=== PATIENT | male | born 1990 | race Caucasian/White ===

== ENCOUNTER 2018-11-10 14:55 | Emergency (ER) | payer MEDICARE, OTHER ==
[~2018-11-10] VITALS: Ht 175.3 cm; Wt 90.7 kg
[2018-11-11] MEDS ORDERED: AMANTADINE100 MG PO (14:26)
[2018-11-11] MEDS ORDERED: ZIPRASIDONE HCL80 MG PO (14:27)
[2018-11-11] MEDS ORDERED: BUPROPION XL300 MG PO (14:27)
[2018-11-11] MEDS ORDERED: OXCARBAZEPINE300 MG PO (14:27)
[2018-11-11] MEDS ORDERED: LOPERAMIDE2 MG PO (14:28)
[2018-11-11] MEDS ORDERED: MAPAP325 MG PO (14:29)
== END 2018-11-10 16:44 | disposition home or self-care (01) ==
LOC: ED 14:55
DX: R56.9 Unspecified convulsions (principal); F41.9 Anxiety disorder, unspecified; F84.0 Autistic disorder; Z88.8 Allergy status to other drugs, medicaments and biological substances; S00.532A Contusion of oral cavity, initial encounter; X58.XXXA Exposure to other specified factors, initial encounter
CPT/HCPCS: 70450; 80053; 85025; 96374; 99284-25; J1200

== ENCOUNTER 2018-11-11 11:25 | Emergency (ER) | payer MEDICARE, OTHER ==
[~2018-11-11] VITALS: Ht 175.3 cm; Wt 90.7 kg
--- OUTSIDE RECORDS SUMMARY | 2018-11-11 11:28 | XMS ---
PreManage Notification: VISHAL MARTINEZ Security Community Specialist Events No recent Security Events currently on file CRITERIA MET - [facility] - 2 Visits in 30 Days CARE PROVIDERS CAITLIN OBRIEN Family Medicine [facility] SHANNON PHONE: Unknown PCP_Unattributed Family Medicine Current PHONE: Unknown JAYNE GABRIEL Primary Care Current PHONE: Unknown CAITLIN ORTEGA Primary Care Thelma OBRIEN PHONE: [phone] THOMAS CAMPA Primary Care Current PHONE: [phone] Melinda Mathews Mental Health Provider 11/16/2016-Current PHONE: Unknown Cathi has no Care Guidelines for this patient. Angela VISIT COUNT (12 MO.) 2 LINDY Granda TOTAL 2 NOTE: Visits indicate total known visits. ED/UCC VISIT TRACKING (12 MO.) 11/11/2018 11:25 [facility] [place] TYPE: Emergency COMPLAINT: - FOLLOW UP 11/10/2018 14:56 [facility] [place] TYPE: Emergency COMPLAINT: - SEIZURE INPATIENT VISIT TRACKING (12 MO.) No inpatient visits to display in this time frame [id number]
[2018-11-11] MEDS ORDERED: AMANTADINE100 MG PO (14:26)
[2018-11-11] MEDS ORDERED: ZIPRASIDONE HCL80 MG PO (14:27)
[2018-11-11] MEDS ORDERED: OXCARBAZEPINE300 MG PO (14:27)
[2018-11-11] MEDS ORDERED: BUPROPION XL300 MG PO (14:27)
[2018-11-11] MEDS ORDERED: LOPERAMIDE2 MG PO (14:28)
[2018-11-11] MEDS ORDERED: MAPAP325 MG PO (14:29)
== END 2018-11-11 14:23 | disposition home or self-care (01) ==
LOC: ED 11:25
DX: R51 Headache (principal); F41.9 Anxiety disorder, unspecified; F84.0 Autistic disorder; Z88.8 Allergy status to other drugs, medicaments and biological substances
CPT/HCPCS: 70450; 99284-25

== ENCOUNTER 2019-06-01 15:09 | Emergency (ER) | payer MEDICARE, OTHER ==
[~2019-06-01] VITALS: Ht 175.3 cm; Wt 90.7 kg
--- OUTSIDE RECORDS SUMMARY | ~2019-06-01 | XMS | Encounter Summary ---
Demographics + + + | Address | [address] | | | [place] [address] | + + + | Home Phone | | + + + | Preferred Language | Unknown | + + + | Marital Status | Single | + + + | Druze Affiliation | Unknown | + + + | Race | Unknown | + + + | Ethnic Group | Unknown | + + + Author + + + | Author | [facility] | | | and [place] | + + + | Organization | [facility] | | | and [place] | + + + | Address | Unknown | + + + | Phone | Unavailable | + + + Support + + +---------+ + | Name | Relationship | Address | Phone | + + +---------+ + | ALEJANDRA MARTINEZ | ECON | Unknown | | + + +---------+ + Care Team Providers + +------+ + | Care Irrigator Head Name | Role | Phone | + +------+ + | Norris Boone NP | PCP | | + +------+ + Reason for Visit +--------+ + | Reason | Comments | +--------+ + | Other | Needs to speak w/ Supervisor [facility] Animal Facility | +--------+ + Encounter Details +--------+ + + + + | Date | Type | Department | Care Team | Description | +--------+ + + + + | 04/20/ | Telephone | [facility] | Dedrick Kelsey, | Other (Needs to | | 2019 | | NEUROLOGY [address] | [address] | speak w/ Referral | | | | [address] | [address] | Coordinator) | | | | [place], [place] | [place] [address] | | | | | [address] | [phone] | | | | | [phone] | | | +--------+ + + + + Social History + +-------+ +--------+------+ | Tobacco Use | Types | Packs/Day | Years | Date | | | | | Used | | + +-------+ +--------+------+ | Never Assessed | | | | | + +-------+ +--------+------+ + + + | Sex Assigned at | Date Recorded | | | | + + + | Not on file | | + + + + + + + | Job Start Date | Occupation | Industry | + + + + | Not on file | Not on file | Not on file | + + + + + + + + | Travel History | Travel Start | Travel End | + + + + + + | No recent travel history available. | + + documented as of this encounter Plan of Treatment +--------+---------+ + + + | Date | Type | Specialty | Care Team | Description | +--------+---------+ + + + | 09/21/ | Office | Neurology | Dedrick Kelsey, | | | 2019 | Visit | | MD Lucas [address] | | | | | | [address] | | | | | | [place] [address] | | | | | | [phone] | | | | | | | | +--------+---------+ + + + documented as of this encounter Visit Diagnoses Not on filedocumented in this encounter"
--- OUTSIDE RECORDS SUMMARY | ~2019-06-01 | XMS | Encounter Summary ---
Demographics + + + | Address | [address] | | | [place] [address] | + + + | Home Phone | | + + + | Preferred Language | Unknown | + + + | Marital Status | Single | + + + | Hindu Affiliation | Unknown | + + + | Race | Unknown | + + + | Ethnic Group | Unknown | + + + Author + + + | Author | [facility] | | | and [place] | + + + | Organization | [facility] | | | and [place] [...] Team Providers + +------+ + | Care Certified Rehabilitation Counselor Name | Role | Phone | + +------+ + | Norris Boone NP | PCP | | + +------+ + Reason for Visit +--------+ + | Reason | Comments | +--------+ + | Other | Needs to speak w/ Rail Setter | +--------+ + Encounter Details +--------+ + + + + | Date | Type | Department | Care Team | Description | +--------+ + + + + | 04/20/ | Telephone | [facility] | Dedrick Kelsey, | Other (Needs to | | 2019 | | NEUROLOGY [address] | [address] | speak w/ Referral | | | | [address] | [address] | Coordinator) | | | | [place], [place] | [place] [address] | | | | | [address] | [phone] | | | | | [phone] | | | +--------+ + + + [...] [address] | | | | | | [address] | | | | | | [place] [address] | | | | | | [phone] | | | | | | | | +--------+---------+ + + + documented as of this encounter Visit Diagnoses Not on filedocumented in this encounter"
--- OUTSIDE RECORDS SUMMARY | ~2019-06-01 | XMS | Clinical Summary ---
Demographics + + + | Address | [address] | | | [place] [address] | + + + | Home Phone | | + + + | Preferred Language | Unknown | + + + | Marital Status | Single | + + + | Yarsani Affiliation | Unknown | + + + | Race | Unknown | + + + | Ethnic Group | Unknown | + + + Author + + + | Author | [facility] | | | and [place] | + + + | Organization | [facility] | | | and [place] [...] Team Providers + +------+ + | Care Bread Stacker Name | Role | Phone | + +------+ + | Norris Boone NP | PCP | | + +------+ + Allergies + + + + + + | Active Allergy | Reactions | Severity | Noted | Comments | | | | | Date | | + + + + + + | Benzodiazepines | Other (See Comments) | | 05/05/20 | Mental | | | | | 19 | | + + + + + + Medications + + + +---------+------+------+-------+ | Medication | Sig | Dispensed | Refills | Star | End | Statu | | | | | | t | Date | s | | | | | | Date | | | + + + +---------+------+------+-------+ | MAPAP 325 MG | | | 5 | 11/1 | | Activ | | tablet | | | | 5/20 | | e | | | | | | 18 | | | + + + +---------+------+------+-------+ | amantadine | | | 6 | 08/2 | | Activ | | (SYMMETREL) 100 mg | | | | 1/20 | | e | | capsule | | | | 19 | | | + + + +---------+------+------+-------+ | buPROPion | | | 6 | 08/2 | | Activ | | (WELLBUTRIN XL) 300 | | | | 1/20 | | e | | mg 24 hr tablet | | | | 19 | | | + + + +---------+------+------+-------+ | BANOPHEN 25 MG | | | 5 | 11/1 | | Activ | | capsule | | | | 5/20 | | e | | | | | | 18 | | | + + + +---------+------+------+-------+ | EUCERIN ECZEMA | | | 99 | 11/1 | | Activ | | RELIEF 1 % CREA | | | | 5/20 | | e | | | | | | 18 | | | + + + +---------+------+------+-------+ | ibuprofen (ADVIL, | | | 5 | 11/1 | | Activ | | MOTRIN) 200 mg | | | | 5/20 | | e | | tablet | | | | 18 | | | + + + +---------+------+------+-------+ | loperamide | | | 5 | 11/1 | | Activ | | (IMODIUM) 2 mg | | | | 5/20 | | e | | capsule | | | | 18 | | | + + + +---------+------+------+-------+ | OXcarbazepine | | | 6 | 08/2 | | Activ | | (TRILEPTAL) 300 mg | | | | 1/20 | | e | | tablet | | | | 19 | | | + + + +---------+------+------+-------+ | OXcarbazepine | | | 6 | 08/2 | | Activ | | (TRILEPTAL) 600 MG | | | | 1/20 | | e | | tablet | | | | 19 | | | + + + +---------+------+------+-------+ | | | | 5 | 11/1 | | Activ | | Neomycin-Bacitracin- | | | | 5/20 | | e | | Polymyxin (TRIPLE | | | | 18 | | | | ANTIBIOTIC) | | | | | | | | 3.5-400-5000 OINT | | | | | | | + + + +---------+------+------+-------+ | ziprasidone | | | 6 | 08/2 | | Activ | | (GEODON) 80 MG | | | | 1/20 | | e | | capsule | | | | 19 | | | + + + +---------+------+------+-------+ | ROBAFEN 100 MG/5ML | | | 5 | 11/1 | | Activ | | syrup | | | | 5/20 | | e | | | | | | 18 | | | + + + +---------+------+------+-------+ | MUCINEX 600 MG 12 | | | 5 | 11/1 | | Activ | | hr tablet | | | | 5/20 | | e | | | | | | 18 | | | + + + +---------+------+------+-------+ | melatonin 5 mg | Take by mouth | | 0 | | | Activ | | tablet | nightly as needed | | | | | e | | | for Insomnia. | | | | | | + + + +---------+------+------+-------+ | topiramate | Take 25 mg bid X 1 | 120 | 3 | 09/0 | | Activ | | (TOPAMAX) 50 MG | Wk then 50 mg bid X | tablet | | 3/20 | | e | | tablet | 1Wk then 75 mg bid X | | | 19 | | | | | 1Wk then 100 mg | | | | | | | | bid. | | | | | | + + + +---------+------+------+-------+ Active Problems Not on file Encounters +--------+ + + + + | Date | Type | Specialty | Care Team | Description | +--------+ + + + + | 09/18/ | Telephone | Neurology | Dedrick Kelsey, | Other (EEG Orders ) | | 2018 | | | MD | | +--------+ + + + + | 05/05/ | Office | Neurology | Dedrick Kelsey, | Seizure disorder | | 2018 | Visit | | MD | ([facility]) (Primary Dx); | | | | | | Driving safety | | | | | | issue; | | | | | | Encephalopathy; High | | | | | | risk medication use | +--------+ + + + + | 04/20/ | Telephone | Neurology | Dedrick Kelsey, | Other (Needs to | | 2018 | | | MD | speak w/ Referral | | | | | | Coordinator) | +--------+ + + + + from Last 3 Months Social History + +-------+ +--------+------+ | Tobacco Use | Types | Packs/Day | Years | Date | | | | | Used | | + +-------+ +--------+------+ | Never Smoker | | | | | + +-------+ +--------+------+ + +---+---+---+ | Smokeless Tobacco: | | | | | Never Used | | | | + +---+---+---+ + + +---------+ + | Alcohol Use | Drinks/We | oz/Week | Comments | | | ek | | | + + +---------+ + | Never | | | | + + +---------+ + + + + + | Alcohol Habits | Answer | Date Recorded | + + + + | How often do you have a drink containing | Never | 05/05/2019 | | alcohol? | | | + + + + | How many drinks containing alcohol do you | Not asked | | | have on a typical day when you are | | | | drinking? | | | + + + + | How often do you have six or more drinks on | Not asked | | | one occasion? | | | + + + + + + + | Sex Assigned at [...] recent travel history available. | + + Last Filed Vital Signs + + + + | Vital Sign | Reading | Time Taken | + + + + | Blood Pressure | 117/74 | 05/05/2019 1520 PDT | + + + + | Pulse | 90 | 05/05/20191519 PDT | + + + + | Temperature | - | - | + + + + | Respiratory Rate | - | - | + + + + | Oxygen Saturation | 99% | 05/05/20191519 PDT | + + + + | Inhaled Oxygen | - | - | | Concentration | | | + + + + | Weight | 74.4 kg (164 lb 1.6 | 05/05/20191519 PDT | | | oz) | | + + + + | Height | 175.3 cm (5' 9") | 05/05/2019 1520 PDT | + + + + | Body Mass Index | 24.23 | 05/05/2019 1520 PDT | + + + + Plan of Treatment +--------+---------+ + + + | Date | Type | Specialty | Care Team | Description | +--------+---------+ + + + | 09/21/ | Office | Neurology | Dedrick Kelsey, | | | 2019 | Visit | | MD Lucas [address]ANA | | | | | | [address] | | | | | | [place] [address] | | | | | | [phone] | | | | | | | | +--------+---------+ + + + + + + + + | Health Maintenance | Due Date | Last Done | Comments | + + + + + | Vaccine: | | 11/27/1999, 06/09/1993, | | | Dtap/Tdap/Td (6 - | 0 | 01/07/1990, Additional history | | | Tdap) | | exists | | + + + + + | Adult Annual | | | | | Wellness Visit | 9 | | | + + + + + | Vaccine: Influenza | | 07/16/2018, 2017, | | | (#1) | 9 | 06/28/2016, Additional history | | | | | exists | | + + + + + Results Not on filefrom Last 3 Months Insurance + +--------+ +--------+ +---------+--------+ | Payer | Benefi | Subscriber | Effect | Phone | Address | Type | | | t Plan | ID | hamzah | | | | | | / | | Dates | | | | | | Group | | | | | | + +--------+ +--------+ +---------+--------+ | MEDICARE | MEDICA | [id number] | 09/02/19 | [phone] | | Medica | | | RE | | 11-Pre | 5 | | re | | | PART A | | sent | | | | | | AND B | | | | | | + +--------+ +--------+ +---------+--------+ | [employer] | MODA | [id number] | 05/05/20 | [phone] | | Medica | | MEDICAID HMO | HEALTH | | 19-Pre | 1 | | id | | | MDCD | | sent | | | | | | HMO [place] | | | | | | + +--------+ +--------+ +---------+--------+ + +--------+ +--------+ + + | Guarantor Name | Accoun | Relation to | Date | Phone | Billing Address | | | t Type | Patient | of | | | | | | | | | | + +--------+ +--------+ + + | Joshua Martinez | Person | Self | [birth year] | [address] | | | al/Fam | | 1990 | [phone] | [place] [address] | | | matt | | | 4 (Home) | | + +--------+ +--------+ + + Advance Directives Patient has advance care planning documents on file. For more information, please contact:[facility] [place] [address]
--- OUTSIDE RECORDS SUMMARY | ~2019-06-01 | XMS | Encounter Summary ---
Demographics + + + | Address | [address] | | | [place] [address] | + + + | Home Phone | | + + + | Preferred Language | Unknown | + + + | Marital Status | Single | + + + | Jew Affiliation | Unknown | + + + | Race | Unknown | + + + | Ethnic Group | Unknown | + + + Author + + + | Author | [facility] | | | and [place] | + + + | Organization | [facility] | | | and [place] | [...] Team Providers + +------+ + | Care Metal Trades Instructor Name | Role | Phone | + +------+ + | Norris Boone NP | PCP | | + +------+ + Reason for Visit +--------+ + | Reason | Comments | +--------+ + | Other | EEG Orders | +--------+ + Encounter Details +--------+ + + + + | Date | Type | Department | Care Team | Description | +--------+ + + + + | 05/20/ | Telephone | [facility] | Dedrick Kelsey, | Other (EEG Orders ) | | 2019 | | NEUROLOGY [address] | MD [address] | | | | | [address] | [address] | | | | | [place], [place] | [place] [address] | | | | | [address] | [phone] | | | | | [phone] | | | +--------+ + + + [...] | | | | | | [address] | | | | | | [place] [address] | | | | | | [phone] | | | | | | | | +--------+---------+ + + + documented as of this encounter Visit Diagnoses Not on filedocumented in this encounter"
--- OUTSIDE RECORDS SUMMARY | ~2019-06-01 | XMS | Clinical Summary ---
Demographics + + + | Address | [address] | | | [place] [address] | + + + | Home Phone | | + + + | Preferred Language | Unknown | + + + | Marital Status | Unknown | + + + | Restoration Affiliation | Unknown | + + + | Race | Unknown | + + + | Ethnic Group | Unknown | + + + Author + + + | Author | [facility] (Historical as of | | | 04-18-19) | + + + | Organization | [facility] (Historical as of | | | 04-18-19) | + + + | Address | Unknown | + + + | Phone | Unavailable | + + + Care Team Providers + +------+ + | Care Train Starter Name | Role | Phone | + +------+ + PP | Unavailable | + +------+ + Allergies Not on File Current Medications Not on file Active Problems Not on file Encounters +--------+ + + + + | Date | Type | Specialty | Care Team | Description | +--------+ + + + + 03/17/ | Documentati | | Macey Pacheco, | Other ([place] | | 2018 | on Only | | [place] | [facility]) | +--------+ + + + + 03/12/ | Documentati | | See, Medical | | | 2018 | on Only | | Record | | +--------+ + + + + 03/12/ | Telephone | | Dedrick Kelsey, | Augie (Medical | | 2018 | | | MD | Records) | +--------+ + + + + 03/11/ | Telephone | | Macey Pacheco, | | | 2019 | | | [place] | | +--------+ + + + + from [...] on file | | + + + Plan of Treatment + + + + + | Health Maintenance | Due Date | Last Done | Comments | + + + + + | Vaccine: | | | | | Dtap/Tdap/Td (1 - | 7 | | | | Tdap) | | | | + + + + + | Vaccine: Influenza | | | | | (#1) | 9 | | | + + + + + Results Not on filefrom Last 3 Months Insurance + +--------+ +------+-------+ + | Payer | Benefi | Subscriber | Type | Phone | Address | | | t Plan | ID | | | | | | / | | | | | | | Group | | | | | + +--------+ +------+-------+ + | MEDICARE | MEDICA | [id number] | | | [address] | | | RE | | | | [place] [address] | | | IP-OP | | | | | + +--------+ +------+-------+ + | MEDICAID | WILLY | [id number] | | | [address] | | | [place] | | | | [place] | | | [place] | | | | [address] | | | [employer] | | | | | + +--------+ +------+-------+ + + +--------+ +--------+ + + | Guarantor Name | Accoun | Relation to | Date | Phone | Billing Address | | | t Type | Patient | of | | | | | | | | | | + +--------+ +--------+ + + | JOSHUA MARTINEZ | Person | Self | [birth year] | Home: | [address] | | | al/Fam | | 1989 | [phone] [place] [address] | | | matt | | | [phone] | | + +--------+ +--------+ + +"
--- OUTSIDE RECORDS SUMMARY | ~2019-06-01 | XMS | Encounter Summary ---
Demographics + + + | Address | [address] | | | [place] [address] | + + + | Home Phone | | + + + | Preferred Language | Unknown | + + + | Marital Status | Unknown | + + + | Buddhism Affiliation | Unknown | + + + | Race | Unknown | + + + | Ethnic Group | Unknown | + + + Author + + + | Author | [facility] (Historical as of | | | 04-18-19) | + + + | Organization | [facility] (Historical as of | | | 04-18-19) | + + + | Address | Unknown | + + + | Phone | Unavailable | + + + Care Team Providers + +------+ + | Care Jack Tamp Operator Name | Role | Phone | + +------+ + PCP | Unavailable | + +------+ + Reason for Visit +--------+ + | Reason | Comments | +--------+ + | Other | Medical Records | +--------+ + Encounter Details +--------+ + + + + | Date | Type | Department | Care Team | Description | +--------+ + + + + | 03/12/ | Telephone | [facility] | Dedrick Kelsey, | Other (Medical | | 2019 | | [facility] Center | MD [address] | Records) | | | | [address] | [place], [place] | | | | | [place], [place] | [address] | | | | | [address] | | | | | | [phone] | | | +--------+ + + + [...] on file | | + + + as of this encounter Plan of Treatment Not on fileas of this encounter Visit Diagnoses Not on filein this encounter"
--- OUTSIDE RECORDS SUMMARY | ~2019-06-01 | XMS | Encounter Summary ---
Demographics + + + | Address | [address] | | | [place] [address] | + + + | Home Phone | | + + + | Preferred Language | Unknown | + + + | Marital Status | Unknown | + + + | Denominational Affiliation | Unknown | + + + | Race | Unknown | + + + | Ethnic Group | Unknown | + + + Author + + + | Author | [facility] (Historical as of | | | 04-18-19) | + + + | Organization | [facility] (Historical as of | | | 04-18-19) | + + + | Address | Unknown | + + + | Phone | Unavailable | + + + Care Team Providers + +------+ + | Care Spinning Frame Tender Name | Role | Phone | + +------+ + PCP | Unavailable | + +------+ + Encounter Details +--------+ + + + + | Date | Type | Department | Care Team | Description | +--------+ + + + + | 03/11/ | Telephone | [facility] | Macey Pacheco, | | | 2019 | | [facility] [place] | [place] | | | | | [address] | | | | | | [place] | | | | | | [address] | | | | | [phone] | | | +--------+ + + + [...]
--- OUTSIDE RECORDS SUMMARY | ~2019-06-01 | XMS | Encounter Summary ---
Demographics + + + | Address | [address] | | | [place] [address] | + + + | Home Phone | | + + + | Preferred Language | Unknown | + + + | Marital Status | Single | + + + | Jainism Affiliation | Unknown | + + + | Race | Unknown | + + + | Ethnic Group | Unknown | + + + Author + + + | Author | [facility] | | | and [place] | + + + | Organization | [facility] | | | and [place] [...] Team Providers + +------+ + | Care Order Entry Technician Name | Role | Phone | + +------+ + | Norris Boone NP | PCP | | + +------+ + Reason for Visit + + + | Reason | Comments | + + + | Establish Care | Epilepsy | + + + Evaluate & Treat (Routine) + +--------+ + + + + | Status | Reason | Specialty | Diagnoses / | Referred By | Referred To | | | | | Procedures | Contact | Contact | + +--------+ + + + + | Authorized | | | Diagnoses | Paolo, | Tammaa, | | | | | Autistic | Norris Walker, | MD Dedrick | | | | | disorder | [employer]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 [address] | [address] | | | | | Traumatic | [address] | [address] | | | | | subarachnoid | [place]ON [place], | D | | | | | hemorrhage | [address] | [place] | | | | | without loss | [place], | [address] | | | | | of | [place] [address] | Phone: | | | | | consciousnes | Phone: | [phone] | | | | | s, | [phone] | Fax: | | | | | subsequent | Fax: | [phone] | | | | | encounter | [phone] | | | | | | Unspecified | | | | | | | intellectual | | | | | | | | | | | | | | disabilities | | | | | | | Other | | | | | | | generalized | | | | | | | epilepsy and | | | | | | | epileptic | | | | | | | syndromes, | | | | | | | not | | | | | | | intractable, | | | | | | | without | | | | | | | status | | | | | | | epilepticus | | | | | | | (HCC) | | | + +--------+ + + + + Encounter Details +--------+---------+ + + + | Date | Type | Department | Care Team | Description | +--------+---------+ + + + | 05/05/ | Office | [facility] | Dedrick Kelsey, | Seizure disorder | | 2019 | Visit | NEUROLOGY [address] | ([facility]) (Primary Dx); | | | | [address] | Driving safety | | | | [place], [place] | [place] [address] | issue; | | | | [address] | [phone] | Encephalopathy; High | | | | [phone] | | risk medication use | +--------+---------+ + + + Social History + +-------+ [...] + + documented as of this encounter Last Filed Vital Signs + + + + | Vital Sign | Reading | Time Taken | + + + + | Blood Pressure | 117/74 | 05/05/2019 1520 PDT | + + + + | Pulse | 90 | 05/05/2019 1520 PDT | + + [...] Height | 175.3 cm (5' 9") | 05/05/20191519 PDT | + + + + | Body Mass Index | 24.23 | 05/05/2019 1520 PDT | + + + + documented in this encounter Patient Instructions Patient Instructions Dedrick Kelsey MD - 05/05/2019 15:15 PDT1- Topiramate 25 mg twice da matt X 1wk then increase to 100 mg twice daily over 4 weeks. 2- Try to avoid Wellbutrin if possible. 3- Labs in 5 weeks, before am dose. 4- Return to clinic in 6 - 8 weeks. Topiramate tablets Brand Names: Topamax, Topiragen What is this medicine? TOPIRAMATE (toe PYRE a mate) is used to treat seizures in adults or children with epilepsy. It is also used for the prevention of migraine headaches. How should I use this medicine? Take this medicine by mouth with a glass of water. Follow the directions on the prescriptio n label. Do not crush or chew. You may take this medicine with meals. Take your medicine at regular intervals. Do not take it more often than directed. Talk to your reading tutor regarding the use of this medicine in children. Special care may be needed. While this drug may be prescribed for children as young as 2 years of age for alicia ected conditions, precautions do apply. What side effects may I notice from receiving this medicine? Side effects that you should report to your doctor or health property caretaker as soon as p ossible: allergic reactions like skin rash, itching or hives, swelling of the face, lips, or tong ue decreased sweating and/or rise in body temperature depression difficulty breathing, fast or irregular breathing patterns difficulty speaking difficulty walking or controlling muscle movements hearing impairment redness, blistering, peeling or loosening of the skin, including inside the mouth tingling, pain or numbness in the hands or feet unusual bleeding or bruising unusually weak or tired worsening of mood, thoughts or actions of suicide or dying Side effects that usually do not require medical attention (report to your doctor or health property caretaker if they continue or are bothersome): altered taste back pain, joint or muscle aches and pains diarrhea, or constipation headache loss of appetite nausea stomach upset, indigestion tremors What may interact with this medicine? Do not take this medicine with any of the following medications: probenecid This medicine may also interact with the following medications: acetazolamide alcohol amitriptyline aspirin and aspirin-like medicines control pills certain medicines for depression certain medicines for seizures certain medicines that treat or prevent blood clots like warfarin, enoxaparin, daltepari n, apixaban, dabigatran, and rivaroxaban digoxin hydrochlorothiazide lithium medicines for pain, sleep, or muscle relaxation metformin methazolamide NSAIDS, medicines for pain and inflammation, like ibuprofen or naproxen pioglitazone risperidone What if I miss a dose? If you miss a dose, take it as soon as you can. If your next dose is to be taken in less th an 6 hours, then do not take the missed dose. Take the next dose at your regular time. Do no t take double or extra doses. Where should I keep my medicine? Keep out of the reach of children. Store at room temperature between 15 and 30 degrees C (59 and 86 degrees F) in a tightly cl osed container. Protect from moisture. Throw away any unused medicine after the expiration d ate. What should I tell my health care provider before I take this medicine? They need to know if you have any of these conditions: bleeding disorders cirrhosis of the liver or liver disease diarrhea glaucoma kidney stones or kidney disease low blood counts, like low white cell, platelet, or red cell counts lung disease like asthma, obstructive pulmonary disease, emphysema metabolic acidosis on a ketogenic diet schedule for surgery or a procedure suicidal thoughts, plans, or attempt; a previous suicide attempt by you or a family memb er an unusual or allergic reaction to topiramate, other medicines, foods, dyes, or preserva tives or trying to get breast-feeding What should I watch for while using this medicine? Visit your doctor or health property caretaker for regular checks on your progress. Do not s top taking this medicine suddenly. This increases the risk of seizures if you are using this medicine to control epilepsy. Wear a medical identification bracelet or chain to say you zhang ve epilepsy or seizures, and carry a card that lists all your medicines. This medicine can decrease sweating and increase your body temperature. Watch for signs of sweating or fever, especially in children. Avoid extreme heat, hot baths, and sauna s. Be careful about exercising, especially in hot weather. Contact your health care provider right away if you notice a fever or decrease in sweating. You should drink plenty of fluids while taking this medicine. If you have had kidney stones in the past, this will help to reduce your chances of forming kidney stones. If you have stomach pain, with nausea or vomiting and yellowing of your eyes or skin, call your doctor immediately. You may get drowsy, dizzy, or have blurred vision. Do not drive, use machinery, or do anyth ing that needs mental alertness until you know how this medicine affects you. To reduce dizz iness, do not sit or stand up quickly, especially if you are an older patient. Alcohol can i ncrease drowsiness and dizziness. Avoid alcoholic drinks. If you notice blurred vision, eye pain, or other eye problems, seek medical attention at on for an eye exam. The use of this medicine may increase the chance of suicidal thoughts or actions. Pay speci al attention to how you are responding while on this medicine. Any worsening of mood, or tho ughts of suicide or dying should be reported to your health property caretaker right away. This medicine may increase the chance of developing metabolic acidosis. If left untreated, this can cause kidney stones, bone disease, or slowed growth in children. Symptoms include b reathing fast, fatigue, loss of appetite, irregular heartbeat, or loss of consciousness. Jonathan l your doctor immediately if you experience any of these side effects. Also, tell your docto r about any surgery you plan on having while taking this medicine since this may increase yo ur risk for metabolic acidosis. control pills may not work properly while you are taking this medicine. Talk to your doctor about using an extra method of control. Women who become while using this medicine may enroll in the [place] Ant[place]ptic Drug Registry by calling . This registry collects informatio n about the safety of antiepileptic drug use during . NOTE:This sheet is a summary. It may not cover all possible information. If you have questi ons about this medicine, talk to your doctor, pharmacist, or health care provider. Copyright 2019 Elsevier Standard EEG: *Clean, dry hair-no products *All medications as directed *Family is asked to wait in the lobby during EEG study-unless needed by nut blanker operator *Test time: roughly 45 minutes *Location: [address] [place] [address] ([place]) Phone number: or Sleep-Deprived EEG: *Example: Stay up until midnight before testing-get up at 5:00am (sleep deprivation) *No caffeine/cigarettes(stimulants) *We ask that someone else drive, as we would not recommend being sleep deprived and on the road *Clean, dry hair-no products *All medications as directed *Family is asked to wait in the lobby during EEG study-unless needed by nut blanker operator *Test time: roughly 60 minutes *Location: [address] [place] [address] ([place]) Phone number: or documented in this encounter Progress Notes Dedrick Kelsey MD - 05/05/2019 1515 PDTFormatting of this note might be different from th maurice original. Subjective: Patient ID: Joshua Martinez is a 28 y.o. male. HPI Dear Norris Boone NP. Thank you for asking us to participate in your patient's care. As you know, Joshua Martinez is a 28 y.o. right handed male who presents today for oz luation of new onset seizures disorder. New vitis. Previous neurologist: None. Events type/s: - Onset; context and course: October,; none; stable. - Ictal: Sudden fall with GTC phases without tongue biting or incontinence. - Duration: 30 - 60 seconds. - Postictal and duration: Tired for the rest of the day. - Frequency; current frequency and last spell: 11/10/18, and May 03, 2019. - Provocative factors: None. Previous record: - Etiology of epilepsy or epilepsy syndrome (including unknown and cryptogenic): Unknown. - EEG: Will check. - Brain MRI: Head CT from 11/10/18: Equivocal focus of subarachnoid hemorrhage versus motion artifact. Head CT from 11/11/18: Probable resolving minimal hemorrhage. - Previous treatment: He is on trileptal 900 mg bid. - Current treatment and side effects if any: Trileptal 900 mg bid. Risk factors for epilepsy include: No head trauma with loss of consciousness more than 30 m inutes, meningitis, encephalitis, febrile seizure, developmental delay or family history of seizure disorder. - Compliance with treatment and orders: Good. - Mood change or depression: Good. - AEDs level: Will check. - Toxicity monitoring: Will check. Lamotrigine was reported to have significant reaction in his case. No current outpatient medications on file. Past Medical History: Diagnosis Date Anxiety Autistic disorder, active Seizures (HCC) FHx: Non FHx off seizures. Social History Socioeconomic History Marital status: Single Spouse name: Not on file Number of children: Not on file Years of education: Not on file Highest education level: Not on file Social Needs Financial resource strain: Not on file Food insecurity - worry: Not on file Food insecurity - inability: Not on file Transportation needs - medical: Not on file Transportation needs - non-medical: Not on file Occupational History Not on file Tobacco Use Smoking status: Never Smoker Smokeless tobacco: Never Used Substance and Sexual Activity Alcohol use: Never Frequency: Never Drug use: Never Sexual activity: Never Other Topics Concern Not on file Social History Narrative Not on file Past medical history, family history and social history were reviewed and updated as necess martha. Review of Systems The patient reports seizures, speech difficulty, agitation, nervousness, and sleep disturba nce. All other system were reviewed and are negative. Objective: BP 117/74 | Pulse 90 | Ht 1.753 m (5' 9") | Wt 74.4 kg (164 lb 1.6 oz) | SpO2 99% | BM I 24.23 kg/m Physical Exam Vitals: Vitals: 05/05/19 1520 BP: 117/74 Pulse: 90 General: Well developed, in no acute distress Neck: Supple, unable to appreciate bruits. Heart: S1, S2, no murmur. Peripheral vascular system: Palpable pulse in upper extremities. Detailed Neurologic Exam Speech: Is fluent and spontaneous with normal naming and repetition. Cognition: The patient is oriented to person, place, and month. Cranial Nerves: At this time, the pupils are equal, round, and reactive to light. Visual fi elds are full to finger confrontation. Extraocular movements are intact. Trigeminal sensatio n is intact and the muscles of mastication are normal. The face is symmetric. Hearing is sym metric bilaterally to fingers rubbing. The palate elevates in the midline. Voice is normal. Shoulder shrug is normal. The tongue has normal motion without fasciculations. Coordination: Reasonable finger to nose. Gait: Unremarakable. Observation: No asymmetry, or involuntary movements noted. Tone: Normal muscle tone. Posture: Normal. Strength: Strength is 5/5 in the upper and lower limbs. Light Touch: Normal light touch sensation in upper and lower extremities. DTR's: Deep tendon reflexes in the upper extremities and knees are normal bilaterally. Assessment: Reason for visit: Evaluation and management of seizure disorder. With: Parents. Impression: 1- New onset seizure disorder in patient with autism while on Trileptal 900 mgbid. 2- Autism with behavioral concerns. Lamotrigine reported to have significant reaction with his genetic testings. Discussed therapeutic options (Keppra, lamotrigine and topiramate), decided to start topira mate knowing benefits and risks. Plan: 1- The differential diagnosis and the necessary work up were discussed with the patient in detail. 2- I reviewed the available medical record and summarized it in my HPI. 3- We discussed the safety issues in detail including safe environment. No falls. He adams sn ot drive. 4- For #1, topiramate 25 mg bid >> 100 mg bid over 4 weeks, check fasting labs before am do se in 5 weeks to r/o toxicity and to insure therapeutic level and good adherence. R-EEG. 5- For #2, per primary care and psychiatry. Try to avoid Wellbutrin if possible. 6- I covered with the patient's family all side effects of the regimen and the interaction with other medications (renal strokes >> reasonable hydration). Parents understand and agree to proceed with the regimen / plan. 7- Risk factors modification per PCP. The patient was instructed to follow up with PCP in r egards to the non neurological symptoms listed on the review of symptoms. 8- RTC in 6 - 8 weeks or prn. However, patient was instructed to call with any concern, if symptoms are worsening, not improving or if any side effects related to regimen. Plan: As above. documented in this encou nter Plan of Treatment +--------+---------+ + + + | Date | Type | Specialty | Care Team | Description | +--------+---------+ + + + | 09/21/ | Office | Neurology | Dedrick Kelsey, | | | 2019 | Visit | | MD [address] | | | | | | [address] | | | | | | [place] [address] | | | | | | [phone] | | | | | | | | +--------+---------+ + + + + +--------+ + + | Name | Priori | Associated Diagnoses | Order Schedule | | | ty | | | + +--------+ + + | CBC w/ Auto Differential | Routin | Seizure disorder | 1 Occurrences | | | e | ([facility]) | starting 05/05/2019 | | | | | until 05/05/2020 | + +--------+ + + | Comprehensive Metabolic Panel | Routin | Seizure disorder | 1 Occurrences | | | e | ([facility]) | starting 05/05/2019 | | | | | until 05/05/2020 | + +--------+ + + | Topiramate Level | Routin | Seizure disorder | 1 Occurrences | | | e | ([facility]) | starting 05/05/2019 | | | | | until 05/05/2020 | + +--------+ + + | EEG | Routin | Seizure disorder | Expected: | | | e | ([facility]) | 05/12/2019, Expires: | | | | | 05/05/2020 | + +--------+ + + documented as of this encounter Visit Diagnoses + + | Diagnosis | + + | Seizure disorder (HCC) - Primary Unspecified epilepsy without mention of intractable | | epilepsy | + + | Driving safety issue Other specified personal history presenting hazards to health | + + | Encephalopathy Encephalopathy, unspecified | + + | High risk medication use Encounter for long-term (current) use of other medications | + + documented in this encounter
--- OUTSIDE RECORDS SUMMARY | ~2019-06-01 | XMS | Encounter Summary ---
Demographics + + + | Address | [address] | | | [place] [address] | + + + | Home Phone | | + + + | Preferred Language | Unknown | + + + | Marital Status | Unknown | + + + | Restorationist Affiliation | Unknown | + + + | Race | Unknown | + + + | Ethnic Group | Unknown | + + + Author + + + | Author | [facility] (Historical as of | | | 04-18-19) | + + + | Organization | [facility] (Historical as of | | | 04-18-19) | + + + | Address | Unknown | + + + | Phone | Unavailable | + + + Care Team Providers + +------+ + | Care Curriculum Coordinator Name | Role | Phone | + +------+ + PCP | Unavailable | + +------+ + Reason for Visit +--------+ + | Reason | Comments | +--------+ + | Other | [facility] | +--------+ + Encounter Details +--------+ + + + + | Date | Type | Department | Care Team | Description | +--------+ + + + + | 03/17/ | Documentati | Shoaib | Macey Pacheco, | Other ([facility] | | 2019 | on Only | [facility] | [facility]) | | | | [address] | | | | | | [place] | | | | | | [address] | | | | | | [phone] | | | +--------+ + + + [...]
--- OUTSIDE RECORDS SUMMARY | ~2019-06-01 | XMS | Encounter Summary ---
Demographics + + + | Address | [address] | | | [place] [address] | + + + | Home Phone | | + + + | Preferred Language | Unknown | + + + | Marital Status | Unknown | + + + | Christian Affiliation | Unknown | + + + | Race | Unknown | + + + | Ethnic Group | Unknown | + + + Author + + + | Author | [facility] (Historical as of | | | 04-18-19) | + + + | Organization | [facility] (Historical as of | | | 04-18-19) | + + + | Address | Unknown | + + + | Phone | Unavailable | + + + Care Team Providers + +------+ + | Care Customer Service Specialist Name | Role | Phone | + [...] + + | 03/12/ | Telephone | [facility] | Dedrick Kelsey, | Other (Medical | | 2019 | | [facility] | MD [address] | Records) | | | | [address] | [place], [place] | | | | | [place], [place] | [address] | | | | | [address] | | | | | | [phone] | | | +--------+ + + + [...]
--- OUTSIDE RECORDS SUMMARY | ~2019-06-01 | XMS | Encounter Summary ---
Demographics + + + | Address | [address] | | | [place] [address] | + + + | Home Phone | | + + + | Preferred Language | Unknown | + + + | Marital Status | Unknown | + + + | Bahai Affiliation | Unknown | + + + | Race | Unknown | + + + | Ethnic Group | Unknown | + + + Author + + + | Author | [facility] (Historical as of | | | 04-18-19) | + + + | Organization | [facility] (Historical as of | | | 04-18-19) | + + + | Address | Unknown | + + + | Phone | Unavailable | + + + Care Team Providers + +------+ + | Care Certified Welding Inspector Name | Role | Phone | + +------+ + PCP | Unavailable | + +------+ + Encounter Details +--------+ + + + + | Date | Type | Department | Care Team | Description | +--------+ + + + + | 03/12/ | Documentati | [facility] | See, Medical | | | 2019 | on Only | Information | Record [address] | | | | | [place] [address] | [address] [place] [address] | | | | | [facility] [address] | | | | | [place] [address] | [phone] | | | | | [phone] | | | +--------+ + + + [...]
--- OUTSIDE RECORDS SUMMARY | ~2019-06-01 | XMS | Encounter Summary ---
Demographics + + + | Address | [address] | | | [place] [address] | + + + | Home Phone | | + + + | Preferred Language | Unknown | + + + | Marital Status | Single | + + + | Worship Affiliation | Unknown | + + + | Race | Unknown | + + + | Ethnic Group | Unknown | + + + Author + + + | Author | [facility] | | | and [place] | + + + | Organization | 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 [address] | [address] | | | | | Traumatic | [address] | DRIVE [address] | | | | | subarachnoid | A[place], | D | | | | | hemorrhage | [address] | [place] | | | | | without loss | [place], | [address] | | | | | of | [place] [address] | Phone: | | | | | consciousnes | Phone: | [phone] | | | | | s, | [phone] | Fax: | | | | | subsequent | Fax: | [phone] | | | | | encounter | [phone] | | | | | | Unspecified [...] + + | 05/05/ | Office | [facility] | Dedrick Kelsey, | Seizure disorder | | 2019 | Visit | NEUROLOGY [address] | [address] | ([facility]) (Primary Dx); | | | | [address] | [address] | Driving safety | | | | [place], [place] | [place] [address] | issue; | | | | [address] | [phone] | Encephalopathy; High | | | | [phone] | | risk medication use | +--------+---------+ [...] more often than directed. Talk to your childbirth and infant care teacher regarding the use of this medicine in children. Special care may be needed. While this drug may be prescribed for children as young as 2 years of age for alicia ected conditions, precautions do apply. What side effects may I notice from receiving this medicine? Side effects that you should report to your doctor or health client care specialist as soon as p ossible: allergic reactions [...] attention (report to your doctor or health client care specialist if they continue or are bothersome): altered [...] this medicine? Visit your doctor or health client care specialist for regular checks on your progress. Do [...] dying should be reported to your health client care specialist right away. This medicine may increase the [...] this medicine may enroll in the [place] Drug Registry by calling . [...] the lobby during EEG study-unless needed by front facer *Test time: roughly 45 minutes *Location: [address] [place] [address] ([place]) Phone number: or Sleep-Deprived EEG: *Example: Stay up until midnight before testing-get up at 5:00am (sleep deprivation) *No caffeine/cigarettes(stimulants) *We ask that someone else drive, as we would not recommend being sleep deprived and on the road *Clean, dry hair-no products *All medications as directed *Family is asked to wait in the lobby during EEG study-unless needed by front facer *Test time: roughly 60 minutes *Location: [address] [place] [address] ([place]) Phone number: or documented in this encounter [...] | | | | | [place] [address] | | | | | | [phone] | | | | | | | | +--------+---------+ + + + + +--------+ + + | Name | Priori | Associated Diagnoses | Order Schedule | | | ty | | | + +--------+ + + | CBC w/ Auto Differential | Routin | Seizure disorder | 1 Occurrences | | | e | ([facility]) | starting 05/05/2019 | | | | | until 05/05/2020 | + +--------+ + + | Comprehensive Metabolic Panel | Routin | Seizure disorder | 1 Occurrences | | | e | ([facility]) | starting 05/05/2019 | | | | | until 05/05/2020 | + +--------+ + + | Topiramate Level | Routin | Seizure disorder | 1 Occurrences | | | e | ([facility]) | starting 05/05/2019 | | | | | until 05/05/2020 | + +--------+ + + | EEG | Routin | Seizure disorder | Expected: | | | e | ([facility]) | 05/12/2019, Expires: | | | | [...]
--- OUTSIDE RECORDS SUMMARY | ~2019-06-01 | XMS | Clinical Summary ---
Demographics + + + | Address | [address] | | | [place] [address] | + + + | Home Phone | | + + + | Preferred Language | Unknown | + + + | Marital Status | Single | + + + | Methodist Affiliation | Unknown | + + + | Race | Unknown | + + + | Ethnic Group | Unknown | + + + Author + + + | Author | and [facility] | | | and [place] | + + + | Organization | and [facility] | | | and [place] | [...] Team Providers + +------+ + | Care Assistant Statistician Name | Role | Phone | + [...] 2018 | Visit | | MD | ([facility]) (Primary Dx); | | | | | [...] | | | | | [place] [address] | | | | | | [phone] | | | | | | | [...] +--------+ +---------+--------+ | MEDICARE | MEDICA | [id number] | 09/02/19 | [phone] | | Medica | | | RE | | 11-Pre | 5 | | re | | | PART A | | sent | | | | | | AND B | | | | | | + +--------+ +--------+ +---------+--------+ | [employer] | MODA | [id number] | 05/05/20 | [phone] | | Medica | | MEDICAID HMO [...] | | al/Fam | | 1990 | [phone] | [place] [address] | | | matt | | | 4 (Home) | | + +--------+ +--------+ + + Advance Directives Patient has advance care planning documents on file. For more information, please contact:[facility] [place] [address]
--- OUTSIDE RECORDS SUMMARY | ~2019-06-01 | XMS | Encounter Summary ---
Demographics + + + | Address | [address] | | | [place] [address] | + + + | Home Phone | | + + + | Preferred Language | Unknown | + + + | Marital Status | Unknown | + + + | Jain Affiliation | Unknown | + + + | Race | Unknown | + + + | Ethnic Group | Unknown | + + + Author + + + | Author | [facility] (Historical as of | | | 04-18-19) | + + + | Organization | [facility] (Historical as of | | | 04-18-19) | + + + | Address | Unknown | + + + | Phone | Unavailable | + + + Care Team Providers + +------+ + | Care Scalehouse Attendant Name | Role | Phone | + +------+ + PCP | Unavailable | + +------+ + Encounter Details +--------+ + + + + | Date | Type | Department | Care Team | Description | +--------+ + + + + | 03/12/ | Documentati | [facility] | See, Medical | | | 2019 | on Only | Information | Record [address] | | | | | [place] [address] | [address] [place] [address] | | | | | [facility] [address] | | | | | [place] [address] | [phone] | | | | | [phone] | | | +--------+ + + + [...]
--- OUTSIDE RECORDS SUMMARY | ~2019-06-01 | XMS | Encounter Summary ---
Demographics + + + | Address | [address] | | | [place] [address] | + + + | Home Phone | | + + + | Preferred Language | Unknown | + + + | Marital Status | Unknown | + + + | Faith Affiliation | Unknown | + + + | Race | Unknown | + + + | Ethnic Group | Unknown | + + + Author + + + | Author | [facility] (Historical as of | | | 04-18-19) | + + + | Organization | [facility] (Historical as of | | | 04-18-19) | + + + | Address | Unknown | + + + | Phone | Unavailable | + + + Care Team Providers + +------+ + | Care Fur Dressing Supervisor Name | Role | Phone | + +------+ + PCP | Unavailable | + +------+ + Reason for Visit +--------+ + | Reason | Comments | +--------+ + | Other | [facility] | +--------+ + Encounter Details +--------+ + + + + | Date | Type | Department | Care Team | Description | +--------+ + + + + | 03/17/ | Documentati | [facility] | Macey Pacheco, | Other ([place] | | 2019 | on Only | [facility] | [facility]) | | | | [address] | | | | | | [place] | | | | | | [address] | | | | | | [phone] | | | +--------+ + + + [...]
--- OUTSIDE RECORDS SUMMARY | ~2019-06-01 | XMS | Clinical Summary ---
Demographics + + + | Address | [address] | | | [place] [address] | + + + | Home Phone | | + + + | Preferred Language | Unknown | + + + | Marital Status | Unknown | + + + | Holiness Affiliation | Unknown | + + + | Race | Unknown | + + + | Ethnic Group | Unknown | + + + Author + + + | Author | [facility] (Historical as of | | | 04-18-19) | + + + | Organization | [facility] (Historical as of | | | 04-18-19) | + + + | Address | Unknown | + + + | Phone | Unavailable | + + + Care Team Providers + +------+ + | Care Paster Hat Lining Name | Role | Phone | + [...] | on Only | | [place] | [facility]) | +--------+ + + + + 03/12/ [...] +------+-------+ + | MEDICARE | MEDICA | [id number] | | | [address] | | | RE | | | | [place] [address] | | | IP-OP | | | | | + +--------+ +------+-------+ + | MEDICAID | WILLY | [id number] | | | [address] | | | N | | | | [place] | | | [place] | | | | [address] | | | SENIOR QUALITY ASSURANCE ANALYST | | | | | + +--------+ [...] | 1989 | [phone] | [place] [address] | | | matt | | | [phone] | | + +--------+ +--------+ + +"
--- OUTSIDE RECORDS SUMMARY | ~2019-06-01 | XMS | Encounter Summary ---
Demographics + + + | Address | [address] | | | [place] [address] | + + + | Home Phone | | + + + | Preferred Language | Unknown | + + + | Marital Status | Unknown | + + + | Methodist Affiliation | Unknown | + + + | Race | Unknown | + + + | Ethnic Group | Unknown | + + + Author + + + | Author | [facility] (Historical as of | | | 04-18-19) | + + + | Organization | [facility] (Historical as of | | | 04-18-19) | + + + | Address | Unknown | + + + | Phone | Unavailable | + + + Care Team Providers + +------+ + | Care Boiler Room Operator Name | Role | Phone | + +------+ + PCP | Unavailable | + +------+ + Encounter Details +--------+ + + + + | Date | Type | Department | Care Team | Description | +--------+ + + + + | 03/11/ | Telephone | [facility] | Macey Pacheco, | | | 2019 | | [facility] [place] | [place] | | | | | [address] | | | | | | [place] | | | | | | [address] | | | | | | [phone] | | | +--------+ + + + [...]
--- OUTSIDE RECORDS SUMMARY | ~2019-06-01 | XMS | Encounter Summary ---
Demographics + + + | Address | [address] | | | [place] [address] | + + + | Home Phone | | + + + | Preferred Language | Unknown | + + + | Marital Status | Single | + + + | Roman Catholic Affiliation | Unknown | + + + | Race | Unknown | + + + | Ethnic Group | Unknown | + + + Author + + + | Author | [facility] | | | and [place] | + + + | Organization | [facility] | | | and [place] [...] Team Providers + +------+ + | Care Snipper Name | Role | Phone | + [...] + + | 05/20/ | Telephone | [facility] | Dedrick Kelsey, | Other (EEG Orders ) | | 2019 | | NEUROLOGY [address] | MD [address] | | | | | [address] | [address] | | | | | [place], [place] | [place] [address] | | | | | [address] | [phone] | | | | | [phone] | | | +--------+ + + + [...] D | | | | | | [place] [address] | | | | | | [phone] | | | | | | | | +--------+---------+ + + + documented as of this encounter Visit Diagnoses Not on filedocumented in this encounter"
[~2019-06-01 15:09] MED LIST: AMANTADINE100 MG PO; BUPROPION XL300 MG PO; LOPERAMIDE2 MG PO; MAPAP325 MG PO; OXCARBAZEPINE300 MG PO; ZIPRASIDONE HCL80 MG PO
--- OUTSIDE RECORDS SUMMARY | 2019-06-01 15:12 | XMS ---
PreManage Notification: VISHAL MARTINEZ Security Survey Interviewer Events No recent Security Events currently on file CRITERIA MET - [facility] CARE PROVIDERS CAITLIN OBRIEN Family Medicine [facility] SHANNON PHONE: Unknown RANDAL ORDOÑEZ Nurse Practitioner: 11/13/2018-Current PHONE: Unknown JAYNE GABRIEL Primary Care Current PHONE: Unknown CAITLIN OBRIEN Primary Care Current PHONE: Unknown THOMAS CAMPA Primary Care Current PHONE: [phone] Melinda Mathews Mental Health Provider 11/16/2016-Current PHONE: Unknown Cathi has no Care Guidelines for this patient. Care History Medical/Surgical 11/13/2018 [facility] - Patient is currently established with [facility]. If patient is seen in the ED during business hours. Please contact [facility] at [facility]. Care Recommendation: This patient has had 5 or more Emergency Department visits in the last 12 months.\T\nbsp; Patient requires education on the scope and purpose of the ED as an acute care provider not a Primary Care Provider and should not be utilized for chronic conditions.\T\nbsp; These are guidelines and the provider should exercise clinical judgment when providing care. E.D. VISIT COUNT (12 MO.) 3 [facility] TOTAL 3 NOTE: Visits indicate total known visits. ED/UCC VISIT TRACKING (12 MO.) 06/01/2019 15:11 [facility] [place] TYPE: Emergency COMPLAINT: - POSS SPIDER BITE/ RIGHT LEG 11/11/2018 11:25 [facility] [place] TYPE: Emergency COMPLAINT: - FOLLOW UP DIAGNOSES: - Autistic disorder - Headache - Allergy status to other drugs, medicaments and biological substances status - Anxiety disorder, unspecified 11/10/2018 14:[address] [facility] [place] TYPE: Emergency COMPLAINT: - SEIZURE DIAGNOSES: - Autistic disorder - Anxiety disorder, unspecified - Exposure to other specified factors, initial encounter - Allergy status to other drugs, medicaments and biological substances status - Contusion of oral cavity, initial encounter - Unspecified convulsions INPATIENT VISIT TRACKING (12 MO.) No inpatient visits to display in this time frame [id number]
[2019-06-01] MEDS ORDERED: AVIDOXY100 MG PO (16:22)
== END 2019-06-01 16:41 | disposition home or self-care (01) ==
LOC: ED 15:09
DX: L03.115 Cellulitis of right lower limb (principal); F41.9 Anxiety disorder, unspecified; Z88.8 Allergy status to other drugs, medicaments and biological substances; Z79.899 Other long term (current) drug therapy
CPT/HCPCS: 93971; 99283-25

== ENCOUNTER 2019-09-18 07:14 | Day surgery (SDC) | payer MEDICARE, OTHER ==
[~2019-09-18] VITALS: Ht 175.3 cm; Wt 77.1 kg
[~2019-09-18 07:14] MED LIST changes: +AVIDOXY100 MG PO
--- NOTE | 2019-09-18 11:15 | NUR ---
09/18/19 1115 Lore[address] Antonio 1107- PT ARRIVES TO PACU NONAROUSABLE TO NOXIOUS STIMULI WITH AN OPA IN PLACE. RESP EVEN AND UNLABORED. OXYGEN SAT HIGH 90'S ON 10L VIA MASK. BANDAID PLACED TO PT'S RIGHT THIGH WHERE HE RECEIVED AN IM INJECTION EARLIER. 1109- OXYGEN TITRATED DOWN TO 6L VIA MASK. OXYGEN SAT HIGH 90'S ON THIS.
[2019-09-18] MEDS ORDERED: IBU400 MG PO (11:53)
[2019-09-18] MEDS ORDERED: NORCO 5-325 TA1 EACH PO (11:53)
--- NOTE | 2019-09-18 12:41 | NUR ---
DRANK POP AND WATER. WANTS TO GO HOME. NO NAUSEA OR PAIN.
--- NOTE | 2019-09-18 13:37 | NUR ---
1245 VOIDED PRIOR TO GOING HOME.
--- NOTE | 2019-09-18 13:38 | NUR ---
1245 DIDNOT WANT TO SIT IN WC WALKED OUT WITH PARENTS DAD HOLDING ARM.
== END 2019-09-18 12:45 | disposition home or self-care (01) ==
LOC: OPS 07:14 → DS 07:14 → OPS 10:00 → DS 10:15 → OPS 12:45
PROVIDERS: Dentist General Practice
PROC: 0CCWXZ1 Extirpation of Matter from Upper Tooth, Multiple, External Approach (ICD-10-PCS; 2019-09-18)
PROC: 0CDWXZ0 Extraction of Upper Tooth, Single, External Approach (ICD-10-PCS; 2019-09-18)
PROC: 0CCXXZ1 Extirpation of Matter from Lower Tooth, Multiple, External Approach (ICD-10-PCS; principal; 2019-09-18 06:45)
DX: K03.81 Cracked tooth (principal); K02.9 Dental caries, unspecified; K03.6 Deposits [accretions] on teeth; F84.0 Autistic disorder; F79 Unspecified intellectual disabilities; G40.409 Other generalized epilepsy and epileptic syndromes, not intractable, without status epilepticus; F41.9 Anxiety disorder, unspecified; Z88.8 Allergy status to other drugs, medicaments and biological substances; Z79.899 Other long term (current) drug therapy
CPT/HCPCS: J0330; J0461; J1100; J1885; J2250; J2405; J2704; J2765; J3010; J7121

== ENCOUNTER 2021-05-18 18:35 | Emergency (ER) | payer MEDICARE, OTHER ==
[~2021-05-18] VITALS: Ht 175.3 cm; Wt 77.1 kg
[~2021-05-18 18:35] MED LIST changes: +IBU400 MG PO; +NORCO 5-325 TA1 EACH PO
[2021-05-18] MEDS ORDERED: TOPIRAMATE100 MG PO (19:02)
[2021-05-18] MEDS ORDERED: MUCUS RELIEF600 M1 PO (19:02)
[2021-05-18] MEDS ORDERED: NAYZILAM5 MG/0.1 M NAS (19:03)
[2021-05-18] MEDS ORDERED: MELATONIN5 M5 PO (19:08)
[2021-05-18] MEDS ORDERED: SEROQUEL100 MG PO (19:10)
[2021-05-18] MEDS ORDERED: TYLENOL325 MG PO (19:11)
== END 2021-05-18 20:10 | disposition home or self-care (01) ==
LOC: ED 18:35
DX: S61.012A Laceration without foreign body of left thumb without damage to nail, initial encounter (principal); Z79.899 Other long term (current) drug therapy; W26.8XXA Contact with other sharp object(s), not elsewhere classified, initial encounter
CPT/HCPCS: 99282

== ENCOUNTER 2024-06-06 11:07 | Emergency (ER) | payer MEDICARE, OTHER ==
[~2024-06-06] VITALS: Ht 175.3 cm; Wt 70.8 kg
[~2024-06-06 11:07] MED LIST changes: +MELATONIN5 M5 PO; +MUCUS RELIEF600 M1 PO; +NAYZILAM5 MG/0.1 M NAS; +SEROQUEL100 MG PO; +TOPIRAMATE100 MG PO; +TYLENOL325 MG PO
[2024-06-06 11:40] LABS: BASOPHILS 0.3 % (0-2); EOSINOPHILS 4.1 % (0-6); HEMATOCRIT 44.3 % (35.0-50.0); HEMOGLOBIN 15.2 g/dL (12.0-18.0); LYMPHOCYTES 30.6 % (24-44); MCH 31.6 (27-36); MCHC 34.4 g/dl (30-36); MCV 91.8 fl (81-99); MONOCYTES 12.5 % (0-12); NEUTROPHILS 52.5 % (39-80); PLATELET COUNT 182 K/uL (140-440); RBC 4.82 M/ul (4.3-5.7); RDW 13.5 (10.5-15.0)
[2024-06-06 11:54] LABS: ALBUMIN 3.9 g/dL (3.4-5.0); ALBUMIN/GLOBULIN RATIO 1.5 (1.1-2.4); BILIRUBIN, TOTAL 0.4 ng/dL (0.2-1.0); BUN/CREATININE RATIO 10.67 (6.0-28.6); CALCIUM 8.5 mg/dL (8.5-10.1); CREATININE, SERUM 1.03 mg/dL (0.70-1.30); PROTEIN, TOTAL 6.5 g/dL (6.4-8.2)
[2024-06-06 13:01] VITALS: BP 123/76
[2024-06-08 07:26] LABS: TOPIRAMATE 9.2 ug/mL (5.0-20.0)
[2024-06-08 20:31] LABS: OXCARB/ESLICARB METABOLITE MHD 32 ug/mL (3-35)
== END 2024-06-06 13:02 | disposition home or self-care (01) ==
LOC: ED 11:07
PROVIDERS: Emergency Medicine
DX: G40.909 Epilepsy, unspecified, not intractable, without status epilepticus (principal); F84.0 Autistic disorder; Z88.8 Allergy status to other drugs, medicaments and biological substances; Z79.899 Other long term (current) drug therapy
CPT/HCPCS: 36415; 80053; 80183; 80201; 85025; 99284